=== PATIENT | male | born 1930 | race Caucasian/White ===

== ENCOUNTER 2016-04-05 19:50 | Emergency (ER) | payer MEDICARE ==
[2016-04-05 20:10] VITALS: BP 142/64
--- NOTE | 2016-04-05 20:22 | UC ---
Respiratory Complaint HPI - HPI Summary HPI Summary: coughing for 2-3 weeks. Cough is wet. So persistent at night he gags and can't catch his breath. No fever. No vomiting. Good appetite. No congestion in head, no ST or earache. - History of Current Complaint Chief Complaint: UCRespiratory Stated Complaint: COUGH/CONGESTION/WHEEZE Time Seen by Provider: 04/05/16 20:10 - Allergies/Home Medications Allergies/Adverse Reactions: Allergies Allergy/AdvReac Type Severity Reaction Status Date / Time No Known Allergies Allergy Verified 04/05/16 20:09 Home Medications: Home Medications Aspirin EC TAB* [Ecotrin EC TAB*] 325 mg PO DAILY 04/05/16 [History Confirmed ] Levothyroxine TAB* [Synthroid TAB*] 50 mcg PO EVERY OTHER DAY 04/05/16 [History Confirmed 04/05/16] Levothyroxine TAB* [Synthroid TAB*] 75 mcg PO EVERY OTHER DAY 04/05/16 [History Confirmed 04/05/16] Metoprolol Tartrate TAB* [Lopressor TAB*] 25 mg PO BID 04/05/16 [History Confirmed 04/05/16] PMH/Surg Hx/FS Hx/Imm Hx Endocrine History Of: 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, Thyroid Disease Cardiovascular History Of: Reports: Hypertension Denies: Cardiac Disorders Respiratory History Of: Reports: COPD, Asthma GI/ History Of: Denies: Ulcer - Surgical History Surgical History: Yes Surgery Procedure, Year, and Place: [facility] 05/2008 - Social History Alcohol Use: None Substance Use Type: None Smoking Status (MU): Never Smoked Tobacco Review of Systems Constitutional: Negative Skin: Negative Eyes: Negative ENT: Nasal Discharge Respiratory: Shortness Of Breath, Cough Cardiovascular: Negative Gastrointestinal: Negative Genitourinary: Negative Motor: Negative Neurovascular: Negative Musculoskeletal: Negative Neurological: Negative Psychological: Negative All Other Systems Reviewed And Are Negative: Yes Physical Exam Triage Information Reviewed: Yes Appearance: Well-Appearing - wheel-chair bound with Dill catheter, but alert, pleasant, conversant, appears well, No Pain Distress, Well-Nourished Vital Signs: Initial Vital Signs Temp 98.0 F 04/05/16 19:57 Pulse 72 04/05/16 19:57 Resp 14 04/05/16 19:57 BP 142/64 04/05/16 19:57 Pulse Ox 99 01/03/17 19:57 Vital Signs Reviewed: Yes Eye Exam: Normal Eyes: Positive: Conjunctiva Clear ENT: Positive: Pharynx normal, Nasal congestion, TMs normal, Muffled/hoarse voice - hoarse. Negative: Tonsillar swelling, Tonsillar exudate Neck exam: Normal Neck: Positive: Supple Respiratory Exam: Normal Respiratory: Positive: Lungs clear, Normal breath sounds, No respiratory distress, No accessory muscle use Cardiovascular Exam: Normal Musculoskeletal Exam: Normal Neurological Exam: Normal Psychological Exam: Normal Skin Exam: Normal UC Diagnostic Evaluation - Laboratory O2 Sat by Pulse Oximetry: 99 Diagnostic Studies Comment: CXR: cardiomegaly, no pneumonia Respiratory Course/Dx - Differential Dx/Diagnosis Differential Diagnosis/HQI/PQRI: Bronchitis, Lower Resp Infection, Sinusitis Provider Diagnoses: bronchitis Discharge - Discharge Plan Condition: Stable Disposition: HOME Prescriptions: Cephalexin CAP* [Keflex CAP*] 500 mg PO TID #30 cap Guaifenesin-Codeine [Cheratussin AC] 1 - 2 teasp PO BEDTIME PRN #100 ml MDD 10cc PRN Reason: Cough Patient Education Materials: Acute Bronchitis (ED) Referrals: Rachana Fregoso MD [Primary Care Provider] -
--- NOTE | 2016-04-05 21:10 | RAD ---
INDICATION: Cough and weakness COMPARISON: None TECHNIQUE: PA and lateral views of the chest were obtained. FINDINGS: Image quality is limited by the seated position of the patient. There is mild to moderate cardiomegaly. The lungs are grossly clear. There is no evidence of large pleural effusion. Visualized bones are normal for the patient's age. There is no radiographic evidence of free air beneath the diaphragm IMPRESSION: CARDIOMEGALY WITHOUT RADIOGRAPHIC EVIDENCE OF ACUTE CARDIOPULMONARY ABNORMALITY.
[2016-04-05] MEDS ORDERED: Cephalexin CAP* 500 MG PO ONE (21:18)
== END 2016-04-05 21:31 | disposition home or self-care (01) ==
LOC: UCCORT 19:50
DX: J40 Bronchitis, not specified as acute or chronic (principal); E07.9 Disorder of thyroid, unspecified; I10 Essential (primary) hypertension
CPT/HCPCS: 71020; 99202; A9270-GY; G0463